=== PATIENT | male | born 1980 | race Caucasian/White ===

== ENCOUNTER 2017-06-02 01:31 | Emergency (ER) | payer OTHER ==
[2016-10-04 02:43] VITALS: BMI 26.7
[~2017-06-02 01:31] MED LIST: HYDROCODON-ACE1 EAC7 PO
== END 2017-06-02 02:21 | disposition home or self-care (01) ==
LOC: D.ER 01:31
DX: M70.22 Olecranon bursitis, left elbow (principal); Y93.89 Activity, other specified

== ENCOUNTER 2017-08-31 06:47 | Emergency (ER) | payer OTHER ==
[2016-10-04 02:43] VITALS: BMI 26.7
== END 2017-08-31 13:33 | disposition home or self-care (01) ==
LOC: D.ER 06:47
DX: S81.812A Laceration without foreign body, left lower leg, initial encounter (principal); X99.1XXA Assault by knife, initial encounter; Y93.89 Activity, other specified; Y92.029 Unspecified place in mobile home as the place of occurrence of the external cause; S84.12XA Injury of peroneal nerve at lower leg level, left leg, initial encounter; M21.372 Foot drop, left foot; F17.200 Nicotine dependence, unspecified, uncomplicated

== ENCOUNTER 2018-05-15 04:14 | Emergency (ER) | payer OTHER ==
[~2018-05-15] VITALS: Ht 177.8 cm; Wt 90.9 kg
[2018-05-15 04:21] VITALS: Ht 177.8 cm; Wt 90.9 kg
[2018-05-15] MEDS ORDERED: ULTRAM50 MG PO (09:16)
[2018-05-15 09:34] VITALS: BP 135/93
== END 2018-05-15 09:32 | disposition home or self-care (01) ==
LOC: D.ER 04:14
DX: S32.402A Unspecified fracture of left acetabulum, initial encounter for closed fracture (principal); V86.59XA Driver of other special all-terrain or other off-road motor vehicle injured in nontraffic accident, initial encounter; Y93.89 Activity, other specified; Y92.89 Other specified places as the place of occurrence of the external cause

== ENCOUNTER 2020-05-31 20:15 | Inpatient (IN) | payer MEDICAID ==
[~2020-05-31] VITALS: Ht 177.8 cm; Wt 79.4 kg
--- NOTE | ~2020-05-31 | OP ---
PATIENT NAME: SUZI CARRANZA MEDICAL RECORD: [id number] :76 LOCATION:[id number] ADMISSION DATE:05/31/20 SURGEON: JACK VANEGAS MD DATE OF OPERATION: 06/01/2020 PREOPERATIVE DIAGNOSIS: Abscess of the left thigh. POSTOPERATIVE DIAGNOSIS: Abscess of the left thigh. Please see dimensions below. PROCEDURE: Excisional debridement with marsupialization and packing of left thigh abscess. Dimensions of the debridement, including margins, measured 3.0 x 3.5 cm. The debrided tissue included skin and subcutaneous tissue as well as a portion of the abscess cavity. The abscess did not involve the knee joint. The risks, possible complications and alternatives to the procedure were explained to the patient. He elects to proceed. OPERATIVE COURSE: The patient was conveyed to the operating room electively on 06/01/2020. General anesthesia was induced by the anesthesia staff. The left lower extremity was sterilely prepped and draped. Utilizing a scalpel, sharp debridement was accomplished. I debrided back to healthy viable bleeding tissue. The dimensions of debridement are listed above. Cultures were obtained. I irrigated with hydrogen peroxide. I then irrigated with normal saline. I curetted out the abscess cavity. Hemostasis was achieved with electrocautery. I then marsupialized the abscess cavity with a running locking 3-0 Vicryl Rapide suture. I then packed the wound with iodoform gauze. A sterile dressing was then applied. The patient was then extubated and conveyed to post-anesthesia care unit where he was in stable condition. I plan to keep the patient in the hospital on IV antibiotics and wound packing until Tuesday and he can be dismissed home on oral antibiotics at that time. TRANSINT:[id number] Voice Confirmation ID: [id number] DOCUMENT ID: [id number] JACK VANEGAS MD CC: [id number] DICTATION DATE: 06/27/20 1305 CATALYTIC CONVERTER OPERATOR HELPER: 06/27/20 1405 DIS IN 06/04/20 [id number] [place] [id number]
[~2020-05-31 20:15] MED LIST changes: +ULTRAM50 MG PO
--- NOTE | 2020-05-31 20:49 | NUR ---
CONSENT FOR I&D OF LEFT THIGHT OBTAINED.
[2020-05-31 21:35] LABS: BASOPHILS 0.3 % (0-2); EOSINOPHILS 3.8 % (0-7); HEMATOCRIT 42.1 % (42.0-54.0); HEMOGLOBIN 14.4 g/dL (13.5-17.5); IMMATURE GRANULOCYTES 0.2 % (0-5); LYMPHOCYTES 15.3 % (15-50); MCH 31.9 pg (26.0-34.0); MCHC 34.2 g/dL (31.0-37.0); MCV 93.3 fL (80.0-100.0); MEAN PLATELET VOLUME 10.3 fL (7.4-10.4); MONOCYTES 7.2 % (2-11); NEUTROPHILS 73.2 % (40-80); PLATELET COUNT 225 10x3/uL (130-400); RBC 4.51 10x6/uL (4.20-6.10); WBC 12.7 10x3/uL (4.8-10.8)
[2020-05-31 21:43] LABS: APTT 32.6 SECONDS (22.8-39.4); INR 1.04 (0.85-1.17); PROTIME 13.6 SECONDS (11.6-15.0)
[2020-05-31 21:46] LABS: ANION GAP 6.5 mmol/L (8-16); CALCIUM 8.4 mg/dL (8.5-10.1); CARBON DIOXIDE 32.8 mmol/L (21.0-32.0); CREATININE - SERUM 1.4 mg/dL (0.6-1.3); POTASSIUM - SERUM 3.3 mmol/L (3.5-5.1)
[2020-05-31 21:58] LABS: ALBUMIN 3.4 g/dL (3.4-5.0); BILIRUBIN - TOTAL 0.91 mg/dL (0.2-1.3); PROTEIN - SERUM 7.1 g/dL (6.4-8.2)
[2020-05-31] MEDS ORDERED: ACETAMINOPHEN500 M1 PO (22:33)
--- NOTE | 2020-05-31 22:35 | NUR ---
RECEIVED PT TO FLOOR FROM ER VIA STRETCHER. LEFT INNER THIGH RED, SWOLLEN, WARM TO TOUCH. SEROSANG DRAINAGE ON 4X4. PT RATES PAIN 3/10. REVIEWED HISTORY AND HOME MEDS. ASSESSMENT COMPLETE PER FLOW-SHEET. PT EATING TURKEY SANDWICH. NO OTHER NEEDS AT THIS TIME. WILL CONTINUE TO MONITOR.
[2020-06-01 00:04] VITALS: BP 117/76; BMI 25.1
[2020-06-01 08:30] VITALS: BP 100/67
--- NOTE | 2020-06-01 09:00 | NUR ---
ALERT AND ORIENTED X4. CONTINUES NPO STATUS AT THIS TIME. WOUND WITH RENESS AND WARMTH NOTED TO LEFT INNER THIGH WITH SEROUS DRAINAGE NOTED. IV TO RT. A/C N/S INFUSING AT PRESCRIBED RATE W/O ANY S/S OF INFECTION/INFILTRATION. LUNGS CTA DENIES ANY DYSPNEA WITH PEDAL PULSES NOTED AND NEGATIVE HOMEN SIGN. PATIENT WEARS BRACE TO LEFT FOOT MONTANO TO FOOT DROP. ENCOURAGED TO USE CALL LIGHT FOR ASSSIT AND DENIES ANY PAIN OR DISCOMFORT AT THIS TIME
[2020-06-01 10:15] LABS: BASOPHILS 0.3 % (0-2); EOSINOPHILS 7.6 % (0-7); HEMATOCRIT 39.4 % (42.0-54.0); HEMOGLOBIN 13.3 g/dL (13.5-17.5); IMMATURE GRANULOCYTES 0.1 % (0-5); LYMPHOCYTES 24.6 % (15-50); MCH 31.9 pg (26.0-34.0); MCHC 33.8 g/dL (31.0-37.0); MCV 94.5 fL (80.0-100.0); MEAN PLATELET VOLUME 9.9 fL (7.4-10.4); MONOCYTES 8.6 % (2-11); NEUTROPHILS 58.8 % (40-80); PLATELET COUNT 181 10x3/uL (130-400); RBC 4.17 10x6/uL (4.20-6.10); RDW 12.3 % (11.5-14.5); WBC 9.7 10x3/uL (4.8-10.8)
[2020-06-01 10:21] LABS: APTT 32.7 SECONDS (22.8-39.4); INR 1.03 (0.85-1.17); PROTIME 13.4 SECONDS (11.6-15.0)
[2020-06-01 10:26] LABS: ANION GAP 5.2 mmol/L (8-16); BILIRUBIN - TOTAL 0.43 mg/dL (0.2-1.3); CARBON DIOXIDE 33.6 mmol/L (21.0-32.0); CREATININE - SERUM 1.3 mg/dL (0.6-1.3); POTASSIUM - SERUM 3.8 mmol/L (3.5-5.1); PROTEIN - SERUM 6.4 g/dL (6.4-8.2)
[2020-06-01 12:21] VITALS: BP 106/72
--- NOTE | 2020-06-01 12:44 | NUR ---
PATIENT RECEIVED HIBICLENS BATH WITH CONSENT FOR SURGERY COMPLETED AND VERBALIZED UNDERSTANDING. PATIENT STABLE AT TIME OF DEPARTURE WITH SURGICAL STAFF.
[2020-06-01 14:11] VITALS: BP 92/72
--- NOTE | 2020-06-01 14:14 | NUR ---
PATIENT RECEIVED TO ROOM ALERT AND ORIENTED WITH DRESSING INTAAVT TO LEFT LEG WITH PEDAL PULSES NOTED.
[2020-06-01 17:48] VITALS: BP 119/72
--- NOTE | 2020-06-01 19:00 | NUR ---
BEDSIDE REPORT RECEIVED AND CARE OF PT ASSUMED. PT LYING IN LOW SOTO'S POSITION WATCHING TV. IV TO RIGHT AC PATENT WITH NS INFUSING AT KVO. DRESSING ON LEFT THIGH CLEAN AND DRY. WILL MONITOR FOR NEEDS.
--- NOTE | 2020-06-01 20:06 | NUR ---
GAVE NORCO, CRUSHED MIXED WITH PUDDING PER PT REQUEST.
[2020-06-01 20:08] VITALS: BP 115/70
--- NOTE | 2020-06-01 22:51 | NUR ---
HS MEDICATIONS GIVEN, TO INCLUDE NORCO CRUSHED AND MIXED WITH PUDDING PER PT REQUEST. WILL CONTINUE TO MONITOR FOR NEEDS.
[2020-06-02 04:00] VITALS: BP 105/63
[2020-06-02 09:12] VITALS: BP 110/63
[2020-06-02 12:38] VITALS: BP 101/55
[2020-06-02 16:55] VITALS: BP 131/84
[2020-06-02 20:00] VITALS: BP 125/86
[2020-06-02 23:46] VITALS: BP 121/82
[2020-06-03 04:00] VITALS: BP 131/78
--- NOTE | 2020-06-03 07:57 | NUR ---
ASSESSMENT PER FLOW SHEET. DRESSING TO LEFT LOWER MID LEG CDI. CHIO FOR PAIN 05/07.CONTACT ISOLATION MAINTAINED.
[2020-06-03 08:00] VITALS: BP 114/80
[2020-06-03 13:27] VITALS: Ht 177.8 cm; Wt 79.4 kg
[2020-06-03 14:25] VITALS: BP 117/83
--- NOTE | 2020-06-03 18:19 | NUR ---
REMAINS WITHOUT NEEDS,WITHOUT CHANGE.CONT PLAN OF CARE
[2020-06-03 18:33] VITALS: BP 107/81
[2020-06-03 20:00] VITALS: BP 133/98
--- NOTE | 2020-06-03 22:10 | NUR ---
PATIENT IS COMPLAINING OF THE AIR CONDITIONING NOT WORKING. HE WAS CUSSING AND NOT HAPPY. PAIN MEDS GIVEN TONIGHT. HE IS NOW SLEEPING COMFORTABLY.
[2020-06-04 04:00] VITALS: BP 128/85
--- NOTE | 2020-06-04 04:27 | NUR ---
PATIENT IS SLEEPING COMFORTABLY IN BED. NO COMPLAINTS SO FAR. HE WAS GIVEN NORCO AND MORPHINE LAST NIGHT. HE WANTS TO BE MOVED TO ANOTHER ROOM WITH AIR CONDITIONING.
--- NOTE | 2020-06-04 08:25 | NUR ---
PT RESTING IN BED. RESP EVEN AND UNLABORED. REPORTS PAIN 4/10 AT THIS TIME. IV TO RIGHT AC WITH NS @ 5ML/HR INFUSING VIA PUMP. SITE WITHOUT REDNESS OR EDEMA. DRESSING TO LEFT LEG C/D/I. DENIES FURTHER NEEDS AT THIS TIME. CL WITHIN REACH. ENCOURAGED TO CALL WITH NEEDS. CONTINUE POC
[2020-06-04 09:50] VITALS: BP 125/83
[2020-06-04 13:28] VITALS: BP 124/81
[2020-06-04] MEDS ORDERED: HYDROCODON-ACE1 EA10 PO (13:57)
[2020-06-04] MEDS ORDERED: COLACE100 MG PO (13:58)
[2020-06-04] MEDS ORDERED: MONODOX100 MG PO (13:58)
--- NOTE | 2020-06-04 15:15 | NUR ---
PT DISCHARGE PAPERWORK PROVIDED. DISCUSSED PRESCRIPTIONS AND IMPORTANCE OF COMPLETING COURSE OF ANTIBIOTICS. PT VOICES UNDERSTANDING. PROVIDED INSTRUCTION ON CLEANING WOUND DAILY WITH HYDROGEN PEROXIDE, THEN COVERING WITH CLEAN DRY DRESSING. PT VOICES UNDERSTANDING. PT DENIES QUESTIONS. REPORTS ALL PERSONAL BELONGINGS WITH HIM AND TAKING THEM HOME.
== END 2020-06-04 15:51 | disposition home or self-care (01) | DRG 572 ==
LOC: D.ER 20:15 → D.SDCHOLD 21:27 → D.MS 21:27 → D.SDCHOLD 06-02 10:43 → D.MS 06-04 15:51
PROVIDERS: Family Medicine; Surgery; ADMIT Family Medicine; ATTEND Family Medicine
PROC: 0JBM0ZZ Excision of Left Upper Leg Subcutaneous Tissue and Fascia, Open Approach (ICD-10-PCS; principal; 2020-06-01 12:34)
DX: L02.416 Cutaneous abscess of left lower limb (principal); R59.0 Localized enlarged lymph nodes; K59.00 Constipation, unspecified